=== PATIENT | female | born 1945 | race Caucasian/White ===

== ENCOUNTER 2020-08-25 12:59 | Observation (INO) | payer OTHER ==
[~2020-08-25] VITALS: Ht 154.9 cm; Wt 77.0 kg
[2020-08-25 13:26] VITALS: BP 140/74
[2020-08-25] MEDS ORDERED: LEVO-T100 MCG PO ×2 (13:33→18:41)
[2020-08-25] MEDS ORDERED: NORVASC 2.5 MG2.5 M1 PO (13:33)
[2020-08-25] MEDS ORDERED: VASOTEC10 MG PO ×2 (13:33→18:41)
[2020-08-25] MEDS ORDERED: VITAMIN B12-FO1 EAC1 PO (13:34)
[2020-08-25] MEDS ORDERED: SUPER THERAVIT1 EACH PO (13:34)
[2020-08-25] MEDS ORDERED: OMEPRAZOLE40 MG PO ×2 (13:34→18:42)
[2020-08-25] MEDS ORDERED: FISH OIL 1,001000 M3 PO (13:34)
[2020-08-25 14:19] LABS: ABSOLUTE BASOPHILS 0.1 thou/uL (0.0-0.2); ABSOLUTE LYMPHOCYTES 1.2 thou/uL (0.8-5.3); ABSOLUTE MONOCYTES 0.6 thou/uL (0.0-1.2); ABSOLUTE NEUTROPHILS 7.9 thou/uL (1.6-8.1); BASOPHILS 0.8 %; EOSINOPHILS 0.4 %; HEMATOCRIT 40.7 % (37.0-47.0); HEMOGLOBIN 13.5 gm/dL (12.0-15.0); LYMPHOCYTES 11.8 %; MCH 30.3 pg (26.0-34.0); MCHC 33.2 g/dL (28.0-37.0); MCV 91.3 fL (80.0-100.0); MONOCYTES 5.9 %; MPV 6.6 fl. (7.2-11.1); NUCLEATED RBCS 0 /100WBC; PLATELET COUNT* 349 thou/uL (150-400); POLYS 81.1 %; RBC 4.46 mil/uL (4.20-5.00); RDW-CV 14.8 % (10.5-14.5); WBC 9.8 thou/uL (4.0-11.0)
[2020-08-25 14:29] LABS: CREATININE 0.9 mg/dL (0.6-1.3); POTASSIUM 4.4 mmol/L (3.5-5.1)
[2020-08-25 14:32] LABS: APTT 24.5 Seconds (25.0-31.3); PROTIME 10.4 Seconds (9.20-11.50)
[2020-08-25 14:33] LABS: ALBUMIN 3.6 g/dL (3.4-5.0); TOTAL BILIRUBIN 0.3 mg/dL (<0.1-1.0); TOTAL PROTEIN 7.7 g/dL (6.4-8.2)
[2020-08-25 14:52] LABS: URINE BILIRUBIN NEGATIVE (Negative); URINE BLOOD NEGATIVE (Negative); URINE CLARITY CLEAR; URINE COLOR YELLOW; URINE GLUCOSE-RANDOM NEGATIVE (Negative); URINE KETONES TRACE (Negative); URINE LEUKOCYTES-REFLEX NEGATIVE (Negative); URINE NITRITE-REFLEX NEGATIVE (Negative); URINE PROTEIN NEGATIVE (Negative); URINE UROBILINOGEN 0.2 E.U./dl (0.2-1.0)
--- NOTE | 2020-08-25 17:01 | EKG ---
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
[2020-08-25 17:41] VITALS: BP 156/78
[2020-08-25] MEDS ORDERED: NORVASC5 M1 PO (18:42)
[2020-08-25 18:45] VITALS: BP 153/83
[2020-08-25 20:02] VITALS: BP 135/72
[2020-08-25] MEDS ORDERED: MELATONIN5 MG SUBLING (22:12)
[2020-08-26] VITALS (7 sets, daily range): BP systolic 125–152; BP diastolic 60–86
[2020-08-26 13:52] LABS: CALCIUM 8.6 mg/dL (8.5-10.1); POTASSIUM 4.2 mmol/L (3.5-5.1)
--- NOTE | 2020-08-26 17:27 | 2DMMODE ---
[place] [address] 2 D/M-MODE ECHOCARDIOGRAM Name: CINDY CLEMENS Room: [address] Diane#: [id number] Admission: 08/25/20 Attend Phys: Saleem Trejo Discharge: Date of : 41 Date of Service: 08/26/20 1727 Report #: [id number] THIS REPORT FOR: cc: Lisy Pérez Sarah Anne FNP Holkins, John M. MD [facility] ~ APPROVED REPORT Study performed: 08/26/2020 09:36:02 EXAM: Comprehensive 2D, Doppler, and color-flow Echocardiogram Patient Location: In-Patient Room #: [facility] Status: routine BSA: 1.78 HR: 77 bpm BP: 152/79 mmHg Rhythm: NSR Other Information Study Quality: Good Indications Syncope 2D Dimensions IVSd: 10.00 (7-11mm) LVOT Diam: 19.81 (18-24mm) LVDd: 36.89 mm PWd: 10.12 (7-11mm) Ascending Ao: 30.15 (22-36mm) LVDs: 26.65 (25-40mm) Aortic Root: 27.01 mm Volumes Left Atrial Volume (Systole) LA ESV Index: 18.20 mL/m2 Aortic Valve AoV Peak Mason.: 1.11 m/s AO Peak Gr.: 4.95 mmHg LVOT Max P.99 mmHg AO Mean Gr.: 2.85 mmHg LVOT Mean P.47 mmHg LVOT Max V: 0.86 m/s AO V2 VTI: 21.31 cm LVOT Mean V: 0.55 m/s JONNA (VTI): 2.73 cm2 LVOT V1 VTI: 18.85 [place] [address] 2 D/M-MODE ECHOCARDIOGRAM Name: CINDY CLEMENS Room: [address]#: [id number] Admission: 08/25/20 Attend Phys: Saleem Trejo Discharge: Date of : 41 Date of Service: 08/26/20 1727 Report #: [id number] Mitral Valve E/A Ratio: 1.09 MV Decel. Time: 203.05 ms MV E Max Mason.: 0.69 m/s MV PHT: 58.88 ms MVA (PHT): 3.74 cm2 TDI E/Lateral E': 9.86 E/Medial E': 8.63 Medial E' Mason.: 0.08 m/s Lateral E' Mason.: 0.07 m/s Pulmonary Valve PV Peak Mason.: 0.96 m/s PV Peak Gr.: 3.66 mmHg Tricuspid Valve RAP Estimate: 5.00 mmHg TR Peak Gr.: 34.94 mmHg RVSP: 39.00 mmHg PA Pressure: 39.00 mmHg Left Ventricle The left ventricle is normal size. There is normal LV segmental wall motion. There is normal left ventricular wall thickness. Left ventricular systolic function is normal. The left ventricular ejection fraction is within the normal range. LVEF is 55-60%. The left ventricular diastolic function is normal. Right Ventricle The right ventricle is normal size. The right ventricular systolic function is normal. Atria The left atrium size is normal. The right atrium size is normal. Aortic Valve Mild aortic valve sclerosis. Trace aortic regurgitation. There is no aortic valvular stenosis. Mitral Valve The mitral valve is normal in structure. Mild mitral regurgitation. No evidence of mitral valve stenosis. Tricuspid Valve The tricuspid valve is normal in structure. Mild tricuspid regurgitation. [place] [address] 2 D/M-MODE ECHOCARDIOGRAM Name: SARATHCINDY Valles Room: [address]#: [id number] Admission: 08/25/20 Attend Phys: Saleem Trejo Discharge: Date of : 41 Date of Service: 08/26/20 1727 Report #: [id number] Pulmonic Valve The pulmonary valve is normal in structure. Trace pulmonic regurgitation. Great Vessels The aortic root is normal in size. IVC is normal in size and collapses >50% with inspiration. Pericardium There is no pericardial effusion. <Conclusion> The left ventricle is normal size. There is normal left ventricular wall thickness. Left ventricular systolic function is normal. The left ventricular ejection fraction is within the normal range. LVEF is 55-60%. The left ventricular diastolic function is normal. The right ventricle is normal size. The left atrium size is normal. Mild aortic valve sclerosis. Trace aortic regurgitation. There is no aortic valvular stenosis. The mitral valve is normal in structure. Mild mitral regurgitation. The tricuspid valve is normal in structure. Mild tricuspid regurgitation. Mild pulmonary hypertension. IVC is normal in size and collapses >50% with inspiration. There is no pericardial effusion. There is normal LV segmental wall motion. <ELECTRONICALLY SIGNED> By: Ton Noel MD, FACC 08/26/201726 26 26 Ton Noel MD, FACC /INF
--- NOTE | 2020-08-26 18:20 | EKG ---
[place] [address] ELECTROCARDIOGRAM REPORT Name: CINDY CLEMENS Room: [address]#: [id number] Admission: 08/25/20 Attend Phys: Saleem Trejo Discharge: Date of : 41 Date of Service: 08/25/20 1517 Report #: [id number] THIS REPORT FOR: //name// [facility] ED Test Date: 2020-08-25 Test Time: 15:17:45 Pat Name: CINDY CLEMENS Department: Room: 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: ADDISON : 1945 Requested By: Bello Royal Order Number: [id number] MD: Lucas Lockett Measurements Intervals [place] Rate: 77 P: 40 ND: 224 QRS: -46 QRSD: 151 T: 78 QT: 410 QTc: 465 Interpretive Statements Sinus rhythm Prolonged ND interval Probable left atrial enlargement Nonspecific IVCD with LAD Left ventricular hypertrophy Inferior infarct, ol Electronically Signed On 08-26-2020 18:20:00 EXPRESS CLERK by Lucas Lockett [email or web address] <ELECTRONICALLY SIGNED> By: Arleen Lockett MD, FAC 08/26/20 1820 16 151 Arleen Lockett MD, [facility] /EPI
[2020-08-27] VITALS: BP 137/60
[2020-08-27 04:00] VITALS: BP 135/74
[2020-08-27 08:04] VITALS: BP 117/79
[2020-08-27 12:00] VITALS: BP 147/82; BP 148/77; BP 149/85
[2020-08-27 14:13] VITALS: BP 117/79
[2020-08-27 16:15] VITALS: BP 117/79
== END 2020-08-27 16:15 | disposition home or self-care (01) ==
LOC: M.ERS 12:59 → M.TBA-ER 14:30 → M.2W 14:30
PROVIDERS: Family Medicine; ADMIT Internal Medicine; ATTEND Internal Medicine
DX: R55 Syncope and collapse (principal); E03.9 Hypothyroidism, unspecified; I10 Essential (primary) hypertension; K21.9 Gastro-esophageal reflux disease without esophagitis; H54.7 Unspecified visual loss; E87.1 Hypo-osmolality and hyponatremia; M25.512 Pain in left shoulder; M79.606 Pain in leg, unspecified; R26.81 Unsteadiness on feet; Z20.828 Contact with and (suspected) exposure to other viral communicable diseases; Z23 Encounter for immunization

== ENCOUNTER → 2020-12-01 | Outpatient (CLI) | payer OTHER ==
[~2020-12-01] MED LIST: FISH OIL 1,001000 M3 PO; LEVO-T100 MCG PO; MELATONIN5 MG SUBLING; NORVASC 2.5 MG2.5 M1 PO; NORVASC5 M1 PO; OMEPRAZOLE40 MG PO; SUPER THERAVIT1 EACH PO; VASOTEC10 MG PO; VITAMIN B12-FO1 EAC1 PO
--- NOTE | 2020-12-02 17:20 | CARDNUC ---
[place] [address] CARDIAC NUCLEAR IMAGING REPORT Name: CINDY CLEMENS Room: [facility]#: [id number] Admission: 12/01/20 Attend Phys: Dimitry Velasquez Discharge: Date of : 41 Date of Service: 12/02/20 1719 Report #: [id number] THIS REPORT FOR: cc: Lisy Pérez Sarah Anne FNP Liston, Michael J. MD [facility] ~ APPROVED REPORT Study performed: 12/01/2020 11:23:11 Exam: Nuclear Stress Test Indication: Chest pain, lightheadedness with syncope. Patient Location: Out-Patient Stress Tech: Madina Ribera Stress Nurse: ILIANA PERRY R.N. Ht: 5 ft 1 in Wt: 160 lbs BSA: 1.72 m2 BMI: 30.22 Medical History Medical History: Chest pain, syncope, lightheadedness, hyponatremia, hypothyroidism, weight loss for no reason, HTN, recent falls. Medications: AMLODIPINE, ENALAPRIL, OMEGA 3 FISH OIL. Allergies: DEXILANT, PANTOPRAZOLE Cardiac Risk Factors: Age, HTN, HX syncope/lightheadedness. Previous Cardiac Procedures: None Pretest Chest Pain Characteristics: No chest pain Exercise History: Indeterminate Physical Disabilities: Recent falls from lightheadedness and syncope. Meds Held (24 hrs): Enalapril Stress Test Details Stress Test: Pharmacologic stress testing performed using 0.4 mg of regadenoson per 5 mL given IV over 10 seconds. Reason for pharmacologic stress test: Recent falls from lightheadedness and syncope.. HR Resting HR: 68 bpm Max Heart Rate (APMHR): 143 bpm Max HR Achieved: 99 bpm Target HR (85% APMHR): 121 bpm % of APMHR: 69 Recovery HR: 90 [place] [address] CARDIAC NUCLEAR IMAGING REPORT Name: CINDY CLEMENS Room: [facility]#: [id number] Admission: 12/01/20 Attend Phys: Dimitry Velasquez Discharge: Date of : 41 Date of Service: 12/02/20 1719 Report #: [id number] Resting BP: 154/80 mmHg Max BP: 163/64 mmHg ECG Resting ECG: Sinus Rhythm, LBBB Stress ECG: Sinus Rhythm, LBBB ST Change: None Arrhythmia: None Recovery ECG: Sinus Rhythm, LBBB Recovery ST Change: None Recovery Arrhythmia: None Clinical Reason for Termination: Completed protocol Stress Symptoms: Chest pressure 5/10, headache. Exercise duration: 00 min 00 sec Exercise capacity: 1.00 METs Patient reported chest pressure with Lexiscan infusion that resolved at the completion of study. Nurse Comments A 75 year old female presented for a sitting Lexiscan Nuclear Stress Test. Test well tolerated. Recovery unremarkable. Patient was stable and stated she felt good when escorted via wheelchair to Nuclear Medicine for imaging. Stress ECG Conclusion Baseline twelve-lead EKG shows sinus rhythm with left bundle branch block. EKGs obtained during and post Lexiscan infusion show sinus rhythm with left bundle branch block. There were no significant stress-induced arrhythmias. NM EXAM: Myocardial Perfusion REST/STRESS Study Data At rest, the left ventricular ejection fraction was 73%.. Post stress, the left ventricular ejection was 64%.. TID = 0.90. Perfusion Perfusion images obtained at rest and post Lexiscan stress show uniform uptake of the radioisotope throughout the myocardium. There were no defects to suggest infarct [place] [address] CARDIAC NUCLEAR IMAGING REPORT Name: CINDY CLEMENS Room: [facility]#: [id number] Admission: 12/01/20 Attend Phys: Dimitry Velasquez Discharge: Date of : 41 Date of Service: 12/02/20 1719 Report #: [id number] Global LV systolic function is preserved. There is some left ventricular systolic dyssynergy consistent with underlying bundle branch block. Nuclear Conclusion ECG Findings: negative for ischemia Clinical Findings: equivocal Nuclear Findings: negative for ischemia Exercise Capacity: not assessed Left Ventricular Function: normal Risk Study: low Perfusion study show no defect to suggest infarct or ischemia. Left ventricular systolic function appears preserved on gated studies. This is a low risk study. <Conclusion> Baseline twelve-lead EKG shows sinus rhythm with left bundle branch block. EKGs obtained during and post Lexiscan infusion show sinus rhythm with left bundle branch block. There were no significant stress-induced arrhythmias. <ELECTRONICALLY SIGNED> By: Charlie Villeda MD, FACC 12/02/201718 18 18 Charlie Villeda MD, FACC /INF
== END ==
LOC: M.NUC 11-23 11:41 → M.CRD 09:00 → M.NUC 09:28
PROVIDERS: ATTEND Internal Medicine
DX: R07.89 Other chest pain (principal); I10 Essential (primary) hypertension